=== PATIENT | female | born 1970 | race Caucasian/White ===

== ENCOUNTER → 2024-07-05 10:40 | Outpatient (REF) | payer OTHER, SELFPAY | LOC: WDC 10:40 | PROVIDERS: ATTENDING PHYSICIAN Physician Assistant Medical; FAMILY PHYSICIAN Obstetrics & Gynecology | DX: Z12.31 Encounter for screening mammogram for malignant neoplasm of breast (principal) | CPT/HCPCS: 77063; 77067 ==

== ENCOUNTER → 2024-07-24 09:29 | Outpatient (REF) | payer OTHER, SELFPAY | LOC: WDC 09:29 | PROVIDERS: ATTENDING PHYSICIAN Physician Assistant Medical; REFERRING PHYSICIAN Nurse Practitioner Family | DX: R92.8 Other abnormal and inconclusive findings on diagnostic imaging of breast (principal) | CPT/HCPCS: 76642 ==

== ENCOUNTER → 2025-07-18 09:55 | Outpatient (REF) | payer OTHER, SELFPAY | LOC: WDC 09:55 | PROVIDERS: ATTENDING PHYSICIAN Physician Assistant Medical | DX: Z12.31 Encounter for screening mammogram for malignant neoplasm of breast (principal) | CPT/HCPCS: 77063; 77067 ==

== ENCOUNTER → 2025-08-04 11:49 | Outpatient (REF) | payer OTHER, SELFPAY | LOC: RAD 11:49 | PROVIDERS: ATTENDING PHYSICIAN Physician Assistant Medical | DX: F17.210 Nicotine dependence, cigarettes, uncomplicated (principal) | CPT/HCPCS: 71271 ==